=== PATIENT | male | born 1970 | race Caucasian/White ===

== ENCOUNTER 2024-12-02 07:41 | Emergency (ER) | payer MEDICAID ==
[~2024-12-02] VITALS: Ht 172.7 cm; Wt 82.0 kg
[2024-12-02 07:50] VITALS: BP 119/71; PULSE 66; RESP 16; TEMP 98.1; O2SAT 98
[2024-12-02] MEDS: BACITRACIN 0.9 GM PACKET OINTMENT TP ONE (08:46)
[2024-12-02] MEDS ORDERED: BACI28.410 TP (09:20)
[2024-12-02] MEDS ORDERED: CEPH-558 PO (09:20)
== END 2024-12-02 09:02 | disposition home or self-care (01) ==
LOC: EMS 07:44
DX: S61.001A Unspecified open wound of right thumb without damage to nail, initial encounter (principal); F17.210 Nicotine dependence, cigarettes, uncomplicated; X58.XXXA Exposure to other specified factors, initial encounter; Y93.89 Activity, other specified; Y92.89 Other specified places as the place of occurrence of the external cause; Y99.8 Other external cause status
CPT/HCPCS: 99283

== ENCOUNTER 2024-12-26 10:21 | Emergency (ER) | payer MEDICAID ==
[~2024-12-26] VITALS: Ht 172.7 cm; Wt 77.3 kg
[~2024-12-26 10:21] MED LIST: BACI28.410 TP; CEPH-558 PO
[2024-12-26 10:40] VITALS: TEMP 98
[2024-12-26 10:51] VITALS: BP 149/93; PULSE 69; RESP 16; O2SAT 99
== END 2024-12-26 11:54 | disposition home or self-care (01) ==
LOC: EMS 10:21
DX: Z48.00 Encounter for change or removal of nonsurgical wound dressing (principal); F17.210 Nicotine dependence, cigarettes, uncomplicated
CPT/HCPCS: 99281; Z7502